=== PATIENT | female | born 1945 | race Caucasian/White ===

== ENCOUNTER 2021-06-02 20:32 | Emergency (ER) | payer OTHER ==
[2021-06-02] MEDS ORDERED: Acetaminophen 500 MG TAB ONE (22:31)
== END 2021-06-02 23:37 | disposition home or self-care (01) ==
LOC: CSHERS 20:32
DX: S00.03XA Contusion of scalp, initial encounter (principal); I11.0 Hypertensive heart disease with heart failure; I50.9 Heart failure, unspecified; M06.9 Rheumatoid arthritis, unspecified; E78.5 Hyperlipidemia, unspecified; E78.00 Pure hypercholesterolemia, unspecified; E03.9 Hypothyroidism, unspecified; F03.90 Unspecified dementia, unspecified severity, without behavioral disturbance, psychotic disturbance, mood disturbance, and anxiety; Z79.82 Long term (current) use of aspirin; Z79.899 Other long term (current) drug therapy; W01.198A Fall on same level from slipping, tripping and stumbling with subsequent striking against other object, initial encounter
CPT/HCPCS: 70450; 72125; 72128; 93005

== ENCOUNTER 2021-08-29 13:01 | Inpatient (IN) | payer MEDICARE, OTHER ==
[2021-08-29 13:48] LABS: #Basophils 0.1 10x3/uL (0.0-0.2); #Eosinphils 0.3 10x3/uL (0.0-0.5); #Monocytes 0.7 10x3/uL (0.0-1.1); #Neutrophils 4.1 10x3/uL (1.5-8.4); %Basophils 0.9 % (0.0-2.0); %Eosinophils 4.6 % (0.0-6.0); %Lymphocytes 22.5 % (18.0-47.0); %Monocytes 10.3 % (0.0-10.0); Hemoglobin 11.8 g/dL (12.0-15.5); Mean Corpuscular HGB CONC 31.5 g/dL (32.0-36.0); Mean Corpuscular Hemoglobin 32.6 pg (27.0-33.0); Mean Corpuscular Volume 103.6 fl (81.6-98.3); Mean Platelet Volume 11.1 fl (7.4-10.4); Platelet Count 195 10x3/uL (150-450); RBC Distribution Width 13.5 % (11.5-14.5); Red Blood Cell (RBC) Count 3.62 10x6/uL (3.90-5.03); White Blood Cell (WBC) Count 6.8 10x3/uL (3.5-10.5)
[2021-08-29 14:00] LABS: PTT 22.1 sec (22.0-33.0); Prothrombin Time 10.6 sec (9.5-12.1)
[2021-08-29 14:04] LABS: ALT (SGPT) 9 U/L (8-55); AST (SGOT) 12 U/L (5-34); Albumin 3.6 g/dL (3.4-4.8); Alkaline Phosphatase 109 U/L (40-110); Anion Gap 13 mmol/L (10-20); BUN (Urea Nitrogen) 25 mg/dL (9.8-20.1); Bilirubin, Total 0.2 mg/dL (0.2-1.2); Calc. Creatinine Clearance 0 mL/min (70-130); Calcium 8.5 mg/dL (7.8-10.44); Carbon Dioxide 29 mmol/L (23-31); Chloride 105 mmol/L (98-107); Glucose 138 mg/dL (83-110); Potassium 4.2 mmol/L (3.5-5.1); Protein, Total 6.6 g/dL (5.8-8.1); Sodium 143 mmol/L (136-145)
[2021-08-29 16:42] LABS: Bilirubin Neg (Negative); Blood, Urine Negative (Negative); Clarity Clear (Clear); Glucose, Urine (Dipstick) Normal (Negative); Ketone, Urine Negative (Negative); Leukocyte Negative (Negative); Nitrite Negative (Negative); Protein, Urine (Dipstick) Negative (Neg-Trace); Specific Gravity, Urine 1.015 (1.002-1.036); Urobilinogen Normal mg/dL (Less than 2)
[2021-08-29 19:25] LABS: Hemoglobin 11.9 g/dL (12.0-15.5)
[2021-08-29] MEDS ORDERED: Ondansetron ODT 4 MG TAB SL PRN (20:15)
[2021-08-29] MEDS ORDERED: Acetaminophen 325 MG TAB PO PRN (20:15)
[2021-08-29] MEDS ORDERED: Ondansetron PF 4 MG/2 ML Vial IVP PRN (20:15)
[2021-08-29 20:39] VITALS: BMI 34.9
[2021-08-29] MEDS: Sodium Chloride 0.9% 1,000 ML IV SCH (22:20)
[2021-08-29] MEDS: Primidone 50 MG TAB PO SCH (22:21)
[2021-08-30 01:29] LABS: Hemoglobin 11.4 g/dL (12.0-15.5)
[2021-08-30 05:16] LABS: Anion Gap 9 mmol/L (10-20); BUN (Urea Nitrogen) 18 mg/dL (9.8-20.1); Calc. Creatinine Clearance 91 mL/min (70-130); Calcium 8.6 mg/dL (7.8-10.44); Carbon Dioxide 31 mmol/L (23-31); Chloride 107 mmol/L (98-107); Glucose 91 mg/dL (83-110); Potassium 4.2 mmol/L (3.5-5.1); Sodium 143 mmol/L (136-145)
[2021-08-30 05:27] LABS: #Eosinphils 0.3 10x3/uL (0.0-0.5); #Monocytes 0.6 10x3/uL (0.0-1.1); #Neutrophils 3.9 10x3/uL (1.5-8.4); %Basophils 0.6 % (0.0-2.0); %Eosinophils 4.1 % (0.0-6.0); %Lymphocytes 23.7 % (18.0-47.0); %Monocytes 9.6 % (0.0-10.0); %Neutrophils 61.7 % (40.0-75.0); Hemoglobin 11.3 g/dL (12.0-15.5); Mean Corpuscular HGB CONC 31.3 g/dL (32.0-36.0); Mean Corpuscular Hemoglobin 32.6 pg (27.0-33.0); Mean Platelet Volume 10.9 fl (7.4-10.4); Platelet Count 186 10x3/uL (150-450); RBC Distribution Width 13.5 % (11.5-14.5); Red Blood Cell (RBC) Count 3.47 10x6/uL (3.90-5.03); White Blood Cell (WBC) Count 6.4 10x3/uL (3.5-10.5)
[2021-08-30] MEDS: Nitroglycerin 0.4 MG TAB (25 Tab Bottle) SL PRN ×2 (05:58→06:04)
[2021-08-30] MEDS ORDERED: Morphine 4 MG/ML VIAL SLOW IVP SCH (06:15)
[2021-08-30 06:52] LABS: Hemoglobin 11.7 g/dL (12.0-15.5)
[2021-08-30] MEDS: Sodium Chloride 0.9% 1,000 ML IV SCH (11:08)
[2021-08-30] MEDS: Primidone 50 MG TAB PO SCH ×2 (11:14→21:55)
[2021-08-30 13:04] LABS: Hemoglobin 11.4 g/dL (12.0-15.5)
[2021-08-30 15:25] LABS: SARS-CoV-2 PCR by NAA Not Detected (NotDetected)
[2021-08-30] MEDS ORDERED: Fleet Enema 133 ML BOT PR SCH (20:00)
[2021-08-31] MEDS ORDERED: Calcium Carbonate 500 MG TAB PO SCH (04:45)
[2021-08-31] MEDS ORDERED: Calcium Carbonate 500 MG ChewTAB PO SCH (04:45)
[2021-08-31 05:06] LABS: #Basophils 0.1 10x3/uL (0.0-0.2); #Eosinphils 0.2 10x3/uL (0.0-0.5); #Monocytes 0.8 10x3/uL (0.0-1.1); #Neutrophils 6.5 10x3/uL (1.5-8.4); %Basophils 0.7 % (0.0-2.0); %Eosinophils 2.5 % (0.0-6.0); %Lymphocytes 13.2 % (18.0-47.0); %Neutrophils 74.1 % (40.0-75.0); Hemoglobin 11.6 g/dL (12.0-15.5); Mean Corpuscular Hemoglobin 32.6 pg (27.0-33.0); Mean Corpuscular Volume 101.7 fl (81.6-98.3); Mean Platelet Volume 10.8 fl (7.4-10.4); Platelet Count 186 10x3/uL (150-450); RBC Distribution Width 13.1 % (11.5-14.5); Red Blood Cell (RBC) Count 3.56 10x6/uL (3.90-5.03); White Blood Cell (WBC) Count 8.8 10x3/uL (3.5-10.5)
[2021-08-31 05:19] LABS: Anion Gap 18 mmol/L (10-20); BUN (Urea Nitrogen) 14 mg/dL (9.8-20.1); Calc. Creatinine Clearance 89 mL/min (70-130); Calcium 8.4 mg/dL (7.8-10.44); Carbon Dioxide 23 mmol/L (23-31); Chloride 106 mmol/L (98-107); Glucose 92 mg/dL (83-110); Potassium 4.1 mmol/L (3.5-5.1); Sodium 143 mmol/L (136-145)
[2021-08-31] MEDS ORDERED: Levothyroxine Sodium 50 MCG TAB PO SCH (06:00)
[2021-08-31] MEDS: Primidone 50 MG TAB PO SCH (08:50)
[2021-08-31] MEDS ORDERED: Polyethylene Glycol 3350 17 GM Packet PO SCH (09:00)
[2021-08-31 16:03] VITALS: BP 144/62; TEMP 97.7
== END 2021-08-31 17:07 | DRG 394 ==
LOC: CSHERS 13:01 → CSHTELE 13:02
PROVIDERS: ADMIT Family Medicine; ATTEND Family Medicine
DX: K63.3 Ulcer of intestine (principal); K62.5 Hemorrhage of anus and rectum; Z20.822 Contact with and (suspected) exposure to COVID-19; E03.9 Hypothyroidism, unspecified; E78.00 Pure hypercholesterolemia, unspecified; F03.90 Unspecified dementia, unspecified severity, without behavioral disturbance, psychotic disturbance, mood disturbance, and anxiety; I25.10 Atherosclerotic heart disease of native coronary artery without angina pectoris; K80.80 Other cholelithiasis without obstruction; M06.9 Rheumatoid arthritis, unspecified; D64.9 Anemia, unspecified; I50.9 Heart failure, unspecified; K57.30 Diverticulosis of large intestine without perforation or abscess without bleeding; F41.9 Anxiety disorder, unspecified; Z88.2 Allergy status to sulfonamides; Z91.041 Radiographic dye allergy status; Z79.82 Long term (current) use of aspirin; Z79.02 Long term (current) use of antithrombotics/antiplatelets; Z79.899 Other long term (current) drug therapy; Z86.73 Personal history of transient ischemic attack (TIA), and cerebral infarction without residual deficits
CPT/HCPCS: 36415; 74176; 80048; 80053; 81003; 82274; 84484; 85025; 85610; 85730; 86850; 86900; 86901; 93005; 93010; J2270; J7050; U0003; U0005

== ENCOUNTER 2021-09-14 16:22 | Outpatient (CLI) | payer MEDICARE | END 2021-09-14 16:23 | disposition home or self-care (01) | LOC: CSHRAD 16:22 | PROVIDERS: ATTEND Psychiatry & Neurology Neurology | DX: R26.9 Unspecified abnormalities of gait and mobility (principal); M47.816 Spondylosis without myelopathy or radiculopathy, lumbar region; M16.11 Unilateral primary osteoarthritis, right hip | CPT/HCPCS: 72100 ==

== ENCOUNTER 2021-10-19 08:48 | Inpatient (IN) | payer MEDICARE, OTHER ==
[2021-10-19 09:33] LABS: #Basophils 0.1 10x3/uL (0.0-0.2); #Eosinphils 0.2 10x3/uL (0.0-0.5); #Monocytes 0.7 10x3/uL (0.0-1.1); #Neutrophils 6.4 10x3/uL (1.5-8.4); %Basophils 0.6 % (0.0-2.0); %Eosinophils 2.1 % (0.0-6.0); %Lymphocytes 15.2 % (18.0-47.0); %Monocytes 7.9 % (0.0-10.0); Hemoglobin 13.8 g/dL (12.0-15.5); Mean Corpuscular HGB CONC 32.5 g/dL (32.0-36.0); Mean Corpuscular Hemoglobin 31.6 pg (27.0-33.0); Mean Corpuscular Volume 97.3 fl (81.6-98.3); Platelet Count 245 10x3/uL (150-450); RBC Distribution Width 12.9 % (11.5-14.5); Red Blood Cell (RBC) Count 4.37 10x6/uL (3.90-5.03); White Blood Cell (WBC) Count 8.7 10x3/uL (3.5-10.5)
[2021-10-19 09:49] LABS: ALT (SGPT) 12 U/L (8-55); AST (SGOT) 17 U/L (5-34); Acetaminophen Less than 6.0 mcg/mL (10.0-30.0); Albumin 4.3 g/dL (3.4-4.8); Alcohol Less than 10 mg/dL (Less than 10); Alkaline Phosphatase 106 U/L (40-110); Anion Gap 15 mmol/L (10-20); BUN (Urea Nitrogen) 24 mg/dL (9.8-20.1); Bilirubin, Total 0.4 mg/dL (0.2-1.2); Calc. Creatinine Clearance 0 mL/min (70-130); Calcium 9.7 mg/dL (7.8-10.44); Carbon Dioxide 37 mmol/L (23-31); Chloride 91 mmol/L (98-107); Globulin 3.4 g/dL (2.4-3.5); Glucose 127 mg/dL (83-110); Protein, Total 7.7 g/dL (5.8-8.1); Salicylate Less than 8.0 mg/dL (15.0-30.0); Sodium 140 mmol/L (136-145)
[2021-10-19 09:54] LABS: Actual Bicarbonate (HCO3v) 35 mEq/L (22-28); Base Excess 8.6 mEq/L (-2.0 to +3.0); Chloride (VBG) 91 mmol/L (98-106); Hemoglobin (Hb) 14.2 g/dL (11.7-16.1); Potassium (VBG) 2.92 mmol/L (3.70-5.30); Puncture Site Other Site; Sodium 140.5 mmol/L (133-146); pH (venous) 7.41 (7.32-7.43)
[2021-10-19 11:33] LABS: SARS-CoV-2 NAA Rapid Test Not Detected (NotDetected)
[2021-10-19] MEDS ORDERED: Potassium Chloride 20 MEQ TAB ONE ×2 (11:49→15:34)
[2021-10-19] MEDS ORDERED: Acetaminophen 325 MG TAB ONE (12:20)
[2021-10-19 13:07] LABS: Troponin I Less than 0.010 ng/mL (< 0.028)
[2021-10-19] MEDS ORDERED: Famotidine/PF 20 mg/2ml Vial ONE (13:24)
[2021-10-19] MEDS ORDERED: methylPREDNISolone Sod Succ/PF 125 MG/2 ML VIAL ONE (13:24)
[2021-10-19] MEDS ORDERED: diphenhydrAMINE 50 MG/ML VIAL ONE (13:24)
[2021-10-19 14:32] LABS: Troponin I Less than 0.010 ng/mL (< 0.028)
[2021-10-19] MEDS ORDERED: Electrolyte Replacement Protocol 1 EACH FS SCH (15:00)
[2021-10-19] MEDS ORDERED: Potassium Chloride 20 MEQ TAB PO SCH (15:30)
[2021-10-19] MEDS ORDERED: Magnesium 2 GM/50 ML 2 GM in Premix Bag 1 BAG IVPB SCH (15:30)
[2021-10-19] MEDS ORDERED: Magnesium 2 GM/50 ML BAG (IN WATER) ONE (15:34)
[2021-10-19 16:53] LABS: Anion Gap 18 mmol/L (10-20); BUN (Urea Nitrogen) 23 mg/dL (9.8-20.1); Calc. Creatinine Clearance 0 mL/min (70-130); Calcium 9.8 mg/dL (7.8-10.44); Carbon Dioxide 34 mmol/L (23-31); Chloride 92 mmol/L (98-107); Glucose 121 mg/dL (83-110); Potassium 3.9 mmol/L (3.5-5.1); Sodium 140 mmol/L (136-145)
[2021-10-19] MEDS: cefTRIAXone\\ROCEPHIN 1 GM in Sodium Chloride 0.9% 100 ML IVPB SCH (19:40)
[2021-10-19 20:54] VITALS: BMI 27.4
[2021-10-19] MEDS: Furosemide 40 MG TAB PO SCH (21:14)
[2021-10-19] MEDS: Acetaminophen 325 MG TAB PO PRN (21:15)
[2021-10-19] MEDS: Donepezil HCl 5 MG TAB PO SCH (21:15)
[2021-10-19] MEDS: Atorvastatin Calcium 10 MG TAB PO SCH (21:15)
[2021-10-20 05:29] LABS: #Monocytes 0.6 10x3/uL (0.0-1.1); #Neutrophils 8.3 10x3/uL (1.5-8.4); %Basophils 0.3 % (0.0-2.0); %Lymphocytes 11.2 % (18.0-47.0); %Monocytes 6.2 % (0.0-10.0); %Neutrophils 81.8 % (40.0-75.0); Hemoglobin 13.9 g/dL (12.0-15.5); Mean Corpuscular HGB CONC 32.9 g/dL (32.0-36.0); Mean Corpuscular Hemoglobin 31.6 pg (27.0-33.0); Mean Corpuscular Volume 95.9 fl (81.6-98.3); Mean Platelet Volume 11.4 fl (7.4-10.4); Platelet Count 272 10x3/uL (150-450); White Blood Cell (WBC) Count 10.1 10x3/uL (3.5-10.5)
[2021-10-20 05:35] LABS: Anion Gap 16 mmol/L (10-20); BUN (Urea Nitrogen) 31 mg/dL (9.8-20.1); Calc. Creatinine Clearance 39 mL/min (70-130); Calcium 9.7 mg/dL (7.8-10.44); Carbon Dioxide 34 mmol/L (23-31); Chloride 96 mmol/L (98-107); Glucose 133 mg/dL (83-110); Magnesium 2.6 mg/dL (1.6-2.6); Potassium 3.8 mmol/L (3.5-5.1); Sodium 142 mmol/L (136-145)
[2021-10-20] MEDS: Levothyroxine Sodium 100 MCG TAB PO SCH (07:40)
[2021-10-20] MEDS: Citalopram 20 MG TAB PO SCH (09:50)
[2021-10-20] MEDS: Aspirin Chewable 81 MG TAB PO SCH (09:50)
[2021-10-20] MEDS: Bupropion 150 MG XL TAB PO SCH (09:50)
[2021-10-20] MEDS: Potassium Chloride 20 MEQ TAB PO SCH (09:50)
[2021-10-20] MEDS: Folic Acid 1 MG TAB PO SCH (09:50)
[2021-10-20] MEDS: Furosemide 40 MG TAB PO SCH ×2 (09:51→19:13)
[2021-10-20] MEDS: Docusate 100 MG CAP PO SCH (09:52)
[2021-10-20] MEDS: Polyethylene Glycol 3350 17 GM Packet PO SCH (09:52)
[2021-10-20] MEDS ORDERED: Gabapentin 300 MG CAP PO SCH ×2 (10:45→21:00)
[2021-10-20] MEDS: cefTRIAXone\\ROCEPHIN 1 GM in Sodium Chloride 0.9% 100 ML IVPB SCH (16:18)
[2021-10-20] MEDS: Atorvastatin Calcium 10 MG TAB PO SCH (21:29)
[2021-10-20] MEDS: Donepezil HCl 5 MG TAB PO SCH (21:29)
[2021-10-20] MEDS: Gabapentin 300 MG CAP PO SCH (21:29)
[2021-10-21 05:22] LABS: Anion Gap 13 mmol/L (10-20); Calc. Creatinine Clearance 49 mL/min (70-130); Carbon Dioxide 34 mmol/L (23-31); Chloride 98 mmol/L (98-107); Glucose 118 mg/dL (83-110); Potassium 3.3 mmol/L (3.5-5.1); Sodium 142 mmol/L (136-145)
[2021-10-21 05:35] LABS: #Basophils 0.1 10x3/uL (0.0-0.2); #Eosinphils 0.1 10x3/uL (0.0-0.5); #Neutrophils 5.4 10x3/uL (1.5-8.4); %Basophils 0.7 % (0.0-2.0); %Eosinophils 1.3 % (0.0-6.0); %Lymphocytes 25.6 % (18.0-47.0); %Monocytes 11.1 % (0.0-10.0); %Neutrophils 60.9 % (40.0-75.0); Hemoglobin 13.1 g/dL (12.0-15.5); Mean Corpuscular HGB CONC 32.3 g/dL (32.0-36.0); Mean Corpuscular Hemoglobin 31.5 pg (27.0-33.0); Mean Corpuscular Volume 97.4 fl (81.6-98.3); Mean Platelet Volume 11.2 fl (7.4-10.4); Platelet Count 241 10x3/uL (150-450); RBC Distribution Width 13.5 % (11.5-14.5); Red Blood Cell (RBC) Count 4.16 10x6/uL (3.90-5.03); White Blood Cell (WBC) Count 8.9 10x3/uL (3.5-10.5)
[2021-10-21 05:38] LABS: BUN (Urea Nitrogen) 36 mg/dL (9.8-20.1)
[2021-10-21] MEDS: Levothyroxine Sodium 100 MCG TAB PO SCH (06:00)
[2021-10-21] MEDS ORDERED: Potassium Chloride 20 MEQ TAB PO SCH (08:00)
[2021-10-21] MEDS: Aspirin Chewable 81 MG TAB PO SCH (10:21)
[2021-10-21] MEDS: Clopidogrel Bisulfate 75 MG TAB PO SCH (10:21)
[2021-10-21] MEDS: Citalopram 20 MG TAB PO SCH (10:21)
[2021-10-21] MEDS: Bupropion 150 MG XL TAB PO SCH (10:22)
[2021-10-21] MEDS: Gabapentin 300 MG CAP PO SCH ×2 (10:22→22:24)
[2021-10-21] MEDS: Furosemide 40 MG TAB PO SCH ×2 (10:22→17:20)
[2021-10-21] MEDS: Potassium Chloride 20 MEQ TAB PO SCH ×2 (10:22→17:20)
[2021-10-21] MEDS: Docusate 100 MG CAP PO SCH (10:23)
[2021-10-21] MEDS: Folic Acid 1 MG TAB PO SCH (10:23)
[2021-10-21 14:31] LABS: Potassium 3.7 mmol/L (3.5-5.1)
[2021-10-21] MEDS: Polyethylene Glycol 3350 17 GM Packet PO SCH (16:10)
[2021-10-21] MEDS: cefTRIAXone\\ROCEPHIN 1 GM in Sodium Chloride 0.9% 100 ML IVPB SCH (17:20)
[2021-10-21] MEDS: Donepezil HCl 5 MG TAB PO SCH (22:26)
[2021-10-21] MEDS: Atorvastatin Calcium 10 MG TAB PO SCH (22:26)
[2021-10-21] MEDS: Acetaminophen 325 MG TAB PO PRN (22:37)
[2021-10-22 04:25] LABS: #Eosinphils 0.2 10x3/uL (0.0-0.5); #Neutrophils 6.2 10x3/uL (1.5-8.4); %Basophils 0.4 % (0.0-2.0); %Eosinophils 2.5 % (0.0-6.0); %Lymphocytes 21.5 % (18.0-47.0); %Monocytes 10.2 % (0.0-10.0); %Neutrophils 64.9 % (40.0-75.0); Hemoglobin 13.1 g/dL (12.0-15.5); Mean Corpuscular Hemoglobin 31.6 pg (27.0-33.0); Mean Platelet Volume 11.2 fl (7.4-10.4); Platelet Count 237 10x3/uL (150-450); RBC Distribution Width 13.4 % (11.5-14.5); Red Blood Cell (RBC) Count 4.14 10x6/uL (3.90-5.03); White Blood Cell (WBC) Count 9.5 10x3/uL (3.5-10.5)
[2021-10-22 04:44] LABS: Anion Gap 16 mmol/L (10-20); BUN (Urea Nitrogen) 32 mg/dL (9.8-20.1); Calc. Creatinine Clearance 53 mL/min (70-130); Calcium 8.9 mg/dL (7.8-10.44); Carbon Dioxide 31 mmol/L (23-31); Chloride 100 mmol/L (98-107); Glucose 117 mg/dL (83-110); Magnesium 2.1 mg/dL (1.6-2.6); Phosphorus 3.8 mg/dL (2.3-4.7); Potassium 3.6 mmol/L (3.5-5.1); Sodium 143 mmol/L (136-145)
[2021-10-22] MEDS: Levothyroxine Sodium 100 MCG TAB PO SCH (06:43)
[2021-10-22] MEDS: Aspirin Chewable 81 MG TAB PO SCH (10:01)
[2021-10-22] MEDS: Clopidogrel Bisulfate 75 MG TAB PO SCH (10:01)
[2021-10-22] MEDS: Potassium Chloride 20 MEQ TAB PO SCH (10:01)
[2021-10-22] MEDS: Gabapentin 300 MG CAP PO SCH (10:01)
[2021-10-22] MEDS: Bupropion 150 MG XL TAB PO SCH (10:02)
[2021-10-22] MEDS: Citalopram 20 MG TAB PO SCH (10:02)
[2021-10-22] MEDS: Docusate 100 MG CAP PO SCH (10:02)
[2021-10-22] MEDS: Polyethylene Glycol 3350 17 GM Packet PO SCH (10:02)
[2021-10-22] MEDS: Furosemide 40 MG TAB PO SCH (10:02)
[2021-10-22] MEDS: Folic Acid 1 MG TAB PO SCH (10:02)
[2021-10-22 19:45] VITALS: BP 120/59; TEMP 98.1
== END 2021-10-22 14:30 | disposition home or self-care (01) | DRG 206 ==
LOC: CSHERS 08:48 → CSHERHOLD 13:28 → CSHTELE 16:42
PROVIDERS: ADMIT Family Medicine; ATTEND Physician Assistant Medical
DX: R09.02 Hypoxemia (principal); N17.9 Acute kidney failure, unspecified; E87.3 Alkalosis; N39.0 Urinary tract infection, site not specified; J98.11 Atelectasis; I50.30 Unspecified diastolic (congestive) heart failure; E03.9 Hypothyroidism, unspecified; E78.5 Hyperlipidemia, unspecified; I11.0 Hypertensive heart disease with heart failure; M06.9 Rheumatoid arthritis, unspecified; F03.90 Unspecified dementia, unspecified severity, without behavioral disturbance, psychotic disturbance, mood disturbance, and anxiety; F41.9 Anxiety disorder, unspecified; E87.6 Hypokalemia; Z20.822 Contact with and (suspected) exposure to COVID-19; I44.7 Left bundle-branch block, unspecified; I25.10 Atherosclerotic heart disease of native coronary artery without angina pectoris; Z96.653 Presence of artificial knee joint, bilateral; S09.90XA Unspecified injury of head, initial encounter; K80.20 Calculus of gallbladder without cholecystitis without obstruction; W19.XXXA Unspecified fall, initial encounter; I27.20 Pulmonary hypertension, unspecified; Z88.2 Allergy status to sulfonamides; Z88.8 Allergy status to other drugs, medicaments and biological substances; Z79.82 Long term (current) use of aspirin; Z79.899 Other long term (current) drug therapy; Z90.710 Acquired absence of both cervix and uterus; Y92.003 Bedroom of unspecified non-institutional (private) residence as the place of occurrence of the external cause
CPT/HCPCS: 36415; 70450; 71045; 71275; 72125; 72170; 80048; 80053; 80307; 82805; 83735; 83880; 84100; 84443; 84484; 85025; 93005; 93306; 94760; 96374; 96375; J0696; J1200; J2930; J3475; J3490; S0028; U0002

== ENCOUNTER 2021-11-10 09:05 | Inpatient (IN) | payer OTHER, MEDICARE ==
[2021-11-10 09:49] LABS: #Eosinphils 0.2 10x3/uL (0.0-0.5); #Monocytes 0.9 10x3/uL (0.0-1.1); #Neutrophils 6.1 10x3/uL (1.5-8.4); %Basophils 0.5 % (0.0-2.0); %Eosinophils 1.8 % (0.0-6.0); %Lymphocytes 16.2 % (18.0-47.0); %Monocytes 10.4 % (0.0-10.0); %Neutrophils 70.7 % (40.0-75.0); Hemoglobin 13.6 g/dL (12.0-15.5); Mean Corpuscular HGB CONC 32.6 g/dL (32.0-36.0); Mean Corpuscular Hemoglobin 31.7 pg (27.0-33.0); Mean Corpuscular Volume 97.2 fl (81.6-98.3); Mean Platelet Volume 11.1 fl (7.4-10.4); Platelet Count 242 10x3/uL (150-450); RBC Distribution Width 13.8 % (11.5-14.5); Red Blood Cell (RBC) Count 4.29 10x6/uL (3.90-5.03); White Blood Cell (WBC) Count 8.6 10x3/uL (3.5-10.5)
[2021-11-10 10:01] LABS: PTT 25.4 sec (22.0-33.0); Prothrombin Time 10.8 sec (9.5-12.1)
[2021-11-10 10:07] LABS: ALT (SGPT) 15 U/L (8-55); AST (SGOT) 17 U/L (5-34); Albumin 4.3 g/dL (3.4-4.8); Alkaline Phosphatase 113 U/L (40-110); BUN (Urea Nitrogen) 27 mg/dL (9.8-20.1); Bilirubin, Total 0.4 mg/dL (0.2-1.2); Calc. Creatinine Clearance 0 mL/min (70-130); Calcium 9.3 mg/dL (7.8-10.44); Glucose 114 mg/dL (83-110); Protein, Total 7.3 g/dL (5.8-8.1)
[2021-11-10 10:09] LABS: Chloride 90 mmol/L (98-107); Potassium 2.9 mmol/L (3.5-5.1); Sodium 142 mmol/L (136-145)
[2021-11-10 10:14] LABS: Anion Gap 17 mmol/L (10-20); Carbon Dioxide 39 mmol/L (23-31)
[2021-11-10 10:42] LABS: SARS-CoV-2 NAA Rapid Test Not Detected (NotDetected)
[2021-11-10] MEDS ORDERED: Potassium Chloride 20 MEQ TAB ONE (11:01)
[2021-11-10] MEDS ORDERED: Potassium Chloride 20 MEQ TAB PO SCH (11:15)
[2021-11-10 12:00] LABS: Actual Bicarbonate (HCO3v) 43 mEq/L (22-28); Base Excess 15.1 mEq/L (-2.0 to +3.0); Calcium, Ionized (venous) 1.09 mmol/L (1.16-1.32); Chloride (VBG) 90 mmol/L (98-106); Hemoglobin (Hb) 13.5 g/dL (11.7-16.1); Potassium (VBG) 2.91 mmol/L (3.70-5.30); Puncture Site Other Site; pH (venous) 7.44 (7.32-7.43)
[2021-11-10] MEDS ORDERED: Acetaminophen 650 MG Suppository PR PRN (12:08)
[2021-11-10] MEDS ORDERED: Ondansetron ODT 4 MG TAB PO PRN (12:08)
[2021-11-10] MEDS ORDERED: Ondansetron PF 4 MG/2 ML Vial IVP PRN (12:08)
[2021-11-10] MEDS ORDERED: hydrALAZINE 20 MG/ML VIAL SLOW IVP PRN (12:08)
[2021-11-10] MEDS ORDERED: NS 0.9% w/ 20 MEQ KCL 1,000 ML ONE (12:39)
[2021-11-10] MEDS ORDERED: Potassium Chloride 10 MEQ in Premix Bag 1 BAG IVPB SCH (13:00)
[2021-11-10 13:39] LABS: BUN (Urea Nitrogen) 26 mg/dL (9.8-20.1); Calc. Creatinine Clearance 0 mL/min (70-130); Calcium 9.6 mg/dL (7.8-10.44); Glucose 100 mg/dL (83-110)
[2021-11-10 14:09] LABS: Carbon Dioxide 39 mmol/L (23-31)
[2021-11-10 14:13] LABS: Chloride 91 mmol/L (98-107); Potassium 3.4 mmol/L (3.5-5.1); Sodium 143 mmol/L (136-145)
[2021-11-10 14:19] LABS: Anion Gap 16 mmol/L (10-20)
[2021-11-10] MEDS ORDERED: Aspirin 81 mg Enteric Coated Tablet PO SCH (16:15)
[2021-11-10] MEDS: NS 0.9% w/ 40 MEQ KCL 1,000 ML IV SCH (18:14)
[2021-11-10 19:22] VITALS: BMI 35.5
[2021-11-10] MEDS ORDERED: Atorvastatin Calcium 40 MG TAB PO SCH (21:00)
[2021-11-11 04:01] LABS: Anion Gap 14 mmol/L (10-20); BUN (Urea Nitrogen) 23 mg/dL (9.8-20.1); Calc. Creatinine Clearance 82 mL/min (70-130); Calcium 9.3 mg/dL (7.8-10.44); Carbon Dioxide 36 mmol/L (23-31); Cardiac Risk 3.7 (Less than 4.5); Chloride 96 mmol/L (98-107); Cholesterol 185 mg/dl (< 200 Desired); Glucose 109 mg/dL (83-110); HDL Cholesterol 50 mg/dL (>60 Neg Risk); LDL Cholesterol, Calculated 111 mg/dL; Sodium 143 mmol/L (136-145); Triglycerides 120 mg/dL (Less than 150)
[2021-11-11 04:07] LABS: #Basophils 0.1 10x3/uL (0.0-0.2); #Eosinphils 0.2 10x3/uL (0.0-0.5); #Monocytes 1.1 10x3/uL (0.0-1.1); #Neutrophils 4.6 10x3/uL (1.5-8.4); %Basophils 0.7 % (0.0-2.0); %Eosinophils 2.8 % (0.0-6.0); %Lymphocytes 17.6 % (18.0-47.0); %Monocytes 14.8 % (0.0-10.0); Hemoglobin 12.9 g/dL (12.0-15.5); Mean Corpuscular HGB CONC 32.4 g/dL (32.0-36.0); Mean Corpuscular Hemoglobin 31.7 pg (27.0-33.0); Mean Corpuscular Volume 97.8 fl (81.6-98.3); Mean Platelet Volume 10.9 fl (7.4-10.4); Platelet Count 216 10x3/uL (150-450); RBC Distribution Width 13.9 % (11.5-14.5); Red Blood Cell (RBC) Count 4.07 10x6/uL (3.90-5.03); White Blood Cell (WBC) Count 7.2 10x3/uL (3.5-10.5)
[2021-11-11] MEDS: NS 0.9% w/ 40 MEQ KCL 1,000 ML IV SCH ×3 (07:21→22:22)
[2021-11-11] MEDS ORDERED: Aspirin 81 mg Enteric Coated Tablet PO SCH (09:00)
[2021-11-11] MEDS ORDERED: Potassium Chloride 20 MEQ TAB PO SCH ×2 (09:15→11:00)
[2021-11-11 10:01] LABS: Anion Gap 15 mmol/L (10-20); BUN (Urea Nitrogen) 21 mg/dL (9.8-20.1); Calc. Creatinine Clearance 80 mL/min (70-130); Calcium 9.2 mg/dL (7.8-10.44); Carbon Dioxide 35 mmol/L (23-31); Chloride 98 mmol/L (98-107); Glucose 127 mg/dL (83-110); Potassium 3.4 mmol/L (3.5-5.1); Sodium 145 mmol/L (136-145)
[2021-11-11 10:25] LABS: Magnesium 2.2 mg/dL (1.6-2.6)
[2021-11-11] MEDS: Atorvastatin Calcium 10 MG TAB PO SCH (20:19)
[2021-11-11] MEDS: Gabapentin 300 MG CAP PO SCH (20:19)
[2021-11-11] MEDS: Acetaminophen 325 MG TAB PO PRN (21:50)
[2021-11-12 04:03] LABS: #Eosinphils 0.2 10x3/uL (0.0-0.5); #Monocytes 1.2 10x3/uL (0.0-1.1); #Neutrophils 4.9 10x3/uL (1.5-8.4); %Basophils 0.2 % (0.0-2.0); %Eosinophils 2.2 % (0.0-6.0); %Lymphocytes 21.9 % (18.0-47.0); %Monocytes 14.7 % (0.0-10.0); %Neutrophils 60.6 % (40.0-75.0); Mean Corpuscular HGB CONC 31.5 g/dL (32.0-36.0); Mean Corpuscular Hemoglobin 31.6 pg (27.0-33.0); Mean Corpuscular Volume 100.5 fl (81.6-98.3); Mean Platelet Volume 11.2 fl (7.4-10.4); Platelet Count 229 10x3/uL (150-450); RBC Distribution Width 14.2 % (11.5-14.5); Red Blood Cell (RBC) Count 4.11 10x6/uL (3.90-5.03)
[2021-11-12] MEDS: Levothyroxine Sodium 100 MCG TAB PO SCH (05:22)
[2021-11-12 05:23] LABS: Anion Gap 13 mmol/L (10-20); BUN (Urea Nitrogen) 17 mg/dL (9.8-20.1); Calc. Creatinine Clearance 96 mL/min (70-130); Calcium 8.6 mg/dL (7.8-10.44); Carbon Dioxide 29 mmol/L (23-31); Chloride 109 mmol/L (98-107); Glucose 107 mg/dL (83-110); Potassium 4.5 mmol/L (3.5-5.1); Sodium 146 mmol/L (136-145)
[2021-11-12] MEDS: NS 0.9% w/ 40 MEQ KCL 1,000 ML IV SCH (07:15)
[2021-11-12] MEDS: Bupropion 150 MG XL TAB PO SCH (08:40)
[2021-11-12] MEDS: Clopidogrel Bisulfate 75 MG TAB PO SCH (08:40)
[2021-11-12] MEDS: Citalopram 20 MG TAB PO SCH (08:40)
[2021-11-12] MEDS: Gabapentin 300 MG CAP PO SCH ×2 (08:40→21:49)
[2021-11-12] MEDS: Aspirin Chewable 81 MG TAB PO SCH (08:40)
[2021-11-12] MEDS: Docusate 100 MG CAP PO SCH (08:40)
[2021-11-12] MEDS: Folic Acid 1 MG TAB PO SCH (08:40)
[2021-11-12] MEDS ORDERED: Donepezil HCl 5 MG TAB PO SCH (21:00)
[2021-11-12] MEDS ORDERED: Melatonin 3 MG TAB PO SCH (21:00)
[2021-11-12] MEDS: Atorvastatin Calcium 10 MG TAB PO SCH (21:49)
[2021-11-13] MEDS: Acetaminophen 325 MG TAB PO PRN (02:06)
[2021-11-13 04:51] LABS: #Eosinphils 0.5 10x3/uL (0.0-0.5); #Monocytes 1.1 10x3/uL (0.0-1.1); #Neutrophils 7.4 10x3/uL (1.5-8.4); %Basophils 0.3 % (0.0-2.0); %Eosinophils 4.5 % (0.0-6.0); %Lymphocytes 13.6 % (18.0-47.0); %Monocytes 10.3 % (0.0-10.0); %Neutrophils 70.9 % (40.0-75.0); Hemoglobin 11.2 g/dL (12.0-15.5); Mean Corpuscular HGB CONC 31.5 g/dL (32.0-36.0); Mean Corpuscular Hemoglobin 32.1 pg (27.0-33.0); Mean Corpuscular Volume 101.7 fl (81.6-98.3); Platelet Count 209 10x3/uL (150-450); RBC Distribution Width 13.8 % (11.5-14.5); Red Blood Cell (RBC) Count 3.49 10x6/uL (3.90-5.03); White Blood Cell (WBC) Count 10.5 10x3/uL (3.5-10.5)
[2021-11-13 04:59] LABS: Anion Gap 13 mmol/L (10-20); BUN (Urea Nitrogen) 16 mg/dL (9.8-20.1); Calc. Creatinine Clearance 105 mL/min (70-130); Calcium 8.8 mg/dL (7.8-10.44); Carbon Dioxide 27 mmol/L (23-31); Chloride 107 mmol/L (98-107); Glucose 116 mg/dL (83-110); Potassium 4.5 mmol/L (3.5-5.1); Sodium 142 mmol/L (136-145)
[2021-11-13] MEDS: Levothyroxine Sodium 100 MCG TAB PO SCH (06:14)
[2021-11-13] MEDS ORDERED: Loperamide HCl 1 MG/7.5 ML UDCUP PO PRN (10:04)
[2021-11-13] MEDS ORDERED: Cholestyramine/Aspartame 4 gm Packet PO SCH ×2 (10:15→22:00)
[2021-11-13] MEDS: Clopidogrel Bisulfate 75 MG TAB PO SCH (11:27)
[2021-11-13] MEDS: Docusate 100 MG CAP PO SCH (11:27)
[2021-11-13] MEDS: Folic Acid 1 MG TAB PO SCH (11:28)
[2021-11-13] MEDS: Citalopram 20 MG TAB PO SCH (11:28)
[2021-11-13] MEDS: Bupropion 150 MG XL TAB PO SCH (11:28)
[2021-11-13] MEDS: Aspirin Chewable 81 MG TAB PO SCH (11:28)
[2021-11-13] MEDS: Gabapentin 300 MG CAP PO SCH (11:38)
[2021-11-13 12:38] VITALS: BP 119/57; TEMP 98.2
== END 2021-11-13 17:45 | DRG 69 ==
LOC: CSHERS 09:05 → INTOOBSV 15:42 → CSHERHOLD 15:42 → OBSVTOIN 15:42 → CSHTELE 18:35
PROVIDERS: ADMIT Family Medicine; ATTEND Family Medicine
DX: G45.9 Transient cerebral ischemic attack, unspecified (principal); J96.01 Acute respiratory failure with hypoxia; E87.3 Alkalosis; E87.2 Acidosis; N17.9 Acute kidney failure, unspecified; I13.0 Hypertensive heart and chronic kidney disease with heart failure and stage 1 through stage 4 chronic kidney disease, or unspecified chronic kidney disease; I50.32 Chronic diastolic (congestive) heart failure; E03.9 Hypothyroidism, unspecified; E78.5 Hyperlipidemia, unspecified; I25.10 Atherosclerotic heart disease of native coronary artery without angina pectoris; M06.9 Rheumatoid arthritis, unspecified; F41.9 Anxiety disorder, unspecified; G30.9 Alzheimer's disease, unspecified; F02.80 Dementia in other diseases classified elsewhere, unspecified severity, without behavioral disturbance, psychotic disturbance, mood disturbance, and anxiety; I44.7 Left bundle-branch block, unspecified; Z96.653 Presence of artificial knee joint, bilateral; E87.6 Hypokalemia; Z20.822 Contact with and (suspected) exposure to COVID-19; M19.90 Unspecified osteoarthritis, unspecified site; E78.00 Pure hypercholesterolemia, unspecified; W19.XXXA Unspecified fall, initial encounter; N18.2 Chronic kidney disease, stage 2 (mild); D64.9 Anemia, unspecified; Z90.710 Acquired absence of both cervix and uterus; Y92.89 Other specified places as the place of occurrence of the external cause; Z88.2 Allergy status to sulfonamides; Z88.8 Allergy status to other drugs, medicaments and biological substances; Z79.82 Long term (current) use of aspirin; Z79.899 Other long term (current) drug therapy; Z91.81 History of falling
CPT/HCPCS: 0240U; 36415; 70450; 70551; 71045; 80048; 80053; 80061; 82088; 82533; 82805; 83735; 83880; 84244; 84443; 84484; 85025; 85610; 85730; 93005; 93306; 94760; G0378; J3480

== ENCOUNTER 2022-03-05 07:57 | Emergency (ER) | payer MEDICARE ==
[2022-03-05 08:36] LABS: #Basophils 0.1 10x3/uL (0.0-0.2); #Eosinphils 0.2 10x3/uL (0.0-0.5); #Monocytes 0.7 10x3/uL (0.0-1.1); %Basophils 0.6 % (0.0-2.0); %Eosinophils 2.6 % (0.0-6.0); %Lymphocytes 14.4 % (18.0-47.0); %Monocytes 7.9 % (0.0-10.0); %Neutrophils 73.9 % (40.0-75.0); Hemoglobin 11.9 g/dL (12.0-15.5); Mean Corpuscular HGB CONC 31.8 g/dL (32.0-36.0); Mean Corpuscular Hemoglobin 30.1 pg (27.0-33.0); Mean Corpuscular Volume 94.4 fl (81.6-98.3); Mean Platelet Volume 10.8 fl (7.4-10.4); Platelet Count 206 10x3/uL (150-450); Red Blood Cell (RBC) Count 3.96 10x6/uL (3.90-5.03); White Blood Cell (WBC) Count 8.2 10x3/uL (3.5-10.5)
[2022-03-05] MEDS ORDERED: Acetaminophen 500 MG TAB ONE (08:41)
[2022-03-05 09:08] LABS: ALT (SGPT) 10 U/L (8-55); AST (SGOT) 16 U/L (5-34); Acetaminophen Less than 10.0 mcg/mL (10.0-30.0); Albumin 3.5 g/dL (3.4-4.8); Alcohol Less than 10 mg/dL (Less than 10); Alkaline Phosphatase 85 U/L (40-110); Anion Gap 15 mmol/L (10-20); BUN (Urea Nitrogen) 13 mg/dL (9.8-20.1); Bilirubin, Total 0.3 mg/dL (0.2-1.2); CK (CPK) 31 U/L (29-168); Calc. Creatinine Clearance 0 mL/min (70-130); Calcium 8.6 mg/dL (7.8-10.44); Carbon Dioxide 26 mmol/L (23-31); Chloride 104 mmol/L (98-107); Globulin 2.9 g/dL (2.4-3.5); Glucose 138 mg/dL (83-110); Potassium 4.7 mmol/L (3.5-5.1); Protein, Total 6.4 g/dL (5.8-8.1); Salicylate Less than 8.0 mg/dL (15.0-30.0); Sodium 140 mmol/L (136-145)
[2022-03-05 11:02] LABS: Bilirubin Neg (Negative); Blood, Urine Negative (Negative); Clarity Clear (Clear); Glucose, Urine (Dipstick) Normal (Negative); Ketone, Urine Negative (Negative); Leukocyte 25 (Negative); Nitrite Negative (Negative); Protein, Urine (Dipstick) 30 mg/dl (Neg-Trace); Urobilinogen Normal mg/dL (Less than 2)
[2022-03-05 11:09] LABS: Amphetamine Not Detected (NotDetected); Barbiturates Screen Detected (NotDetected); Benzodiazepine Screen Not Detected (NotDetected); Cocaine Metabolite Screen Not Detected (NotDetected); Methadone Not Detected (NotDetected); Methamphetamine Not Detected (NotDetected); Opiate Screen Not Detected (NotDetected); Oxycodone Screen Not Detected (NotDetected); Phencyclidine (PCP) Not Detected (NotDetected); THC/Cannabinoid Screen Not Detected (NotDetected); Tricyclic Screen Not Detected (NotDetected)
[2022-03-05 11:25] LABS: RBC/HPF 0-3 HPF (0-3); Squamous Epithelial 0-3 HPF (0-3); WBC/HPF 0-3 HPF (0-3)
[2022-03-05 11:26] LABS: Bacteria/HPF 2+ HPF (None Seen)
== END 2022-03-05 13:21 | disposition home or self-care (01) ==
LOC: CSHERS 07:57
DX: S80.02XA Contusion of left knee, initial encounter (principal); S80.01XA Contusion of right knee, initial encounter; E03.9 Hypothyroidism, unspecified; E78.5 Hyperlipidemia, unspecified; I11.0 Hypertensive heart disease with heart failure; I50.9 Heart failure, unspecified; W19.XXXA Unspecified fall, initial encounter
CPT/HCPCS: 70450; 71045; 72170; 80053; 80306; 80307; 81003; 81015; 82550; 83735; 83880; 84443; 85025; 93005

== ENCOUNTER 2022-03-07 11:52 | Emergency (ER) | payer MEDICARE ==
[2022-03-07] MEDS ORDERED: Acetaminophen/Codeine 30-300mg Tablet ONE (12:32)
[2022-03-07] MEDS ORDERED: Bacitracin 1 PK ONE (13:46)
== END 2022-03-07 14:00 | disposition home or self-care (01) ==
LOC: CSHERS 11:52
DX: T22.252A Burn of second degree of left shoulder, initial encounter (principal); T31.0 Burns involving less than 10% of body surface; I11.0 Hypertensive heart disease with heart failure; I50.9 Heart failure, unspecified; I25.10 Atherosclerotic heart disease of native coronary artery without angina pectoris; E03.9 Hypothyroidism, unspecified; E78.5 Hyperlipidemia, unspecified; M06.9 Rheumatoid arthritis, unspecified; K21.9 Gastro-esophageal reflux disease without esophagitis; X19.XXXA Contact with other heat and hot substances, initial encounter
CPT/HCPCS: 16000

== ENCOUNTER 2022-03-13 19:10 | Inpatient (IN) | payer MEDICARE ==
[2022-03-13] MEDS ORDERED: Morphine 4 MG/ML VIAL ONE (20:00)
[2022-03-13 20:02] LABS: #Basophils 0.1 10x3/uL (0.0-0.2); #Eosinphils 0.3 10x3/uL (0.0-0.5); #Monocytes 0.9 10x3/uL (0.0-1.1); #Neutrophils 10.9 10x3/uL (1.5-8.4); %Basophils 0.4 % (0.0-2.0); %Eosinophils 2.4 % (0.0-6.0); %Lymphocytes 11.7 % (18.0-47.0); %Monocytes 6.7 % (0.0-10.0); %Neutrophils 78.4 % (40.0-75.0); Mean Corpuscular HGB CONC 31.2 g/dL (32.0-36.0); Mean Corpuscular Hemoglobin 29.8 pg (27.0-33.0); Mean Corpuscular Volume 95.5 fl (81.6-98.3); Platelet Count 259 10x3/uL (150-450); RBC Distribution Width 14.4 % (11.5-14.5); Red Blood Cell (RBC) Count 4.03 10x6/uL (3.90-5.03)
[2022-03-13 20:15] LABS: ALT (SGPT) 9 U/L (8-55); AST (SGOT) 15 U/L (5-34); Albumin 3.9 g/dL (3.4-4.8); Alkaline Phosphatase 92 U/L (40-110); Anion Gap 15 mmol/L (10-20); BUN (Urea Nitrogen) 17 mg/dL (9.8-20.1); Bilirubin, Total 0.2 mg/dL (0.2-1.2); Calc. Creatinine Clearance 0 mL/min (70-130); Calcium 8.7 mg/dL (7.8-10.44); Carbon Dioxide 31 mmol/L (23-31); Chloride 99 mmol/L (98-107); Globulin 3.1 g/dL (2.4-3.5); Glucose 132 mg/dL (83-110); Lipase 21 U/L (8-78); Potassium 3.9 mmol/L (3.5-5.1); Sodium 141 mmol/L (136-145)
[2022-03-13 20:34] LABS: CKMB 1.7 ng/mL (0-6.6)
[2022-03-13] MEDS ORDERED: methylPREDNISolone Sod Succ/PF 125 MG/2 ML VIAL ONE (22:23)
[2022-03-13] MEDS ORDERED: diphenhydrAMINE 50 MG/ML VIAL ONE (22:23)
[2022-03-13] MEDS ORDERED: Famotidine/PF 20 mg/2ml Vial ONE (22:24)
[2022-03-14] MEDS ORDERED: Bacitracin 1 PK ONE (04:03)
[2022-03-14 04:48] LABS: Hemoglobin 12.2 g/dL (12.0-15.5); Mean Corpuscular HGB CONC 32.3 g/dL (32.0-36.0); Mean Corpuscular Volume 93.1 fl (81.6-98.3); Mean Platelet Volume 10.7 fl (7.4-10.4); Platelet Count 238 10x3/uL (150-450); RBC Distribution Width 14.9 % (11.5-14.5); Red Blood Cell (RBC) Count 4.06 10x6/uL (3.90-5.03)
[2022-03-14 04:57] LABS: Anion Gap 15 mmol/L (10-20); BUN (Urea Nitrogen) 15 mg/dL (9.8-20.1); Calc. Creatinine Clearance 0 mL/min (70-130); Calcium 8.9 mg/dL (7.8-10.44); Carbon Dioxide 27 mmol/L (23-31); Chloride 100 mmol/L (98-107); Glucose 197 mg/dL (83-110); Potassium 4.3 mmol/L (3.5-5.1); Sodium 138 mmol/L (136-145)
[2022-03-14] MEDS ORDERED: Azithromycin 500 MG VIAL ONE (04:57)
[2022-03-14] MEDS ORDERED: Furosemide 40 MG/4 ML VIAL ONE (04:57)
[2022-03-14] MEDS ORDERED: Cefepime 2 GM VIAL ONE (04:57)
[2022-03-14 05:02] LABS: Troponin I 0.035 ng/mL (< 0.028)
[2022-03-14 05:14] LABS: MDiff Complete? YES
[2022-03-14 05:17] LABS: Band 8 % (5-11); Lymphocytes 4 % (21-51); Monocytes 3 % (0-10); Neutrophil 84 % (42-75); Reactive Lymphocytes 1 % (0-10)
[2022-03-14 05:18] LABS: Platelet Morphology Comment Appears Adequate; RBC Morphology Normal
[2022-03-14] MEDS ORDERED: cefTRIAXone\\ROCEPHIN 2 GM in Sodium Chloride 0.9% 100 ML IVPB SCH (06:00)
[2022-03-14] MEDS: Furosemide 40 MG/4 ML VIAL SLOW IVP SCH ×2 (07:48→14:42)
[2022-03-14] MEDS: Azithromycin 500 MG in Sodium Chloride 0.9% 250 ML 250 ML IVPB SCH (07:48)
[2022-03-14] MEDS ORDERED: Heparin 5,000 UNITS/ML VIAL ONE (08:00)
[2022-03-14] MEDS ORDERED: Amlodipine 5 MG TAB ONE (08:00)
[2022-03-14] MEDS ORDERED: hydrALAZINE 25 MG TAB ONE (08:01)
[2022-03-14] MEDS ORDERED: Aspirin 300 MG Suppository ONE (08:02)
[2022-03-14] MEDS ORDERED: Enoxaparin Sodium 40 MG/0.4 ML SYRINGE ONE (08:02)
[2022-03-14] MEDS ORDERED: Aspirin 325 MG TAB ONE (08:30)
[2022-03-14 08:34] LABS: Troponin I 0.034 ng/mL (< 0.028)
[2022-03-14] MEDS ORDERED: Enoxaparin Sodium 40 MG/0.4 ML SYRINGE SC SCH (09:00)
[2022-03-14] MEDS ORDERED: Aspirin 300 MG Suppository PR SCH (09:00)
[2022-03-14 14:20] VITALS: BMI 35.6
[2022-03-14] MEDS: Atorvastatin Calcium 10 MG TAB PO SCH (21:52)
[2022-03-14] MEDS: Donepezil HCl 5 MG TAB PO SCH (21:52)
[2022-03-14] MEDS ORDERED: Acetaminophen 325 MG TAB PO SCH (22:15)
[2022-03-14] MEDS ORDERED: Albuterol Sulfate 2.5 mg/3 ml Neb NEB SCH (22:45)
[2022-03-15 03:52] LABS: #Eosinphils 0.1 10x3/uL (0.0-0.5); #Monocytes 1.4 10x3/uL (0.0-1.1); #Neutrophils 9.7 10x3/uL (1.5-8.4); %Basophils 0.2 % (0.0-2.0); %Eosinophils 0.5 % (0.0-6.0); %Lymphocytes 12.7 % (18.0-47.0); %Monocytes 11.1 % (0.0-10.0); %Neutrophils 75.1 % (40.0-75.0); Hemoglobin 11.1 g/dL (12.0-15.5); Mean Corpuscular HGB CONC 32.1 g/dL (32.0-36.0); Mean Corpuscular Hemoglobin 30.2 pg (27.0-33.0); Mean Platelet Volume 10.8 fl (7.4-10.4); Platelet Count 233 10x3/uL (150-450); RBC Distribution Width 14.8 % (11.5-14.5); Red Blood Cell (RBC) Count 3.68 10x6/uL (3.90-5.03); White Blood Cell (WBC) Count 12.9 10x3/uL (3.5-10.5)
[2022-03-15 03:54] LABS: Anion Gap 16 mmol/L (10-20); BUN (Urea Nitrogen) 21 mg/dL (9.8-20.1); Calc. Creatinine Clearance 91 mL/min (70-130); Calcium 8.5 mg/dL (7.8-10.44); Carbon Dioxide 29 mmol/L (23-31); Chloride 100 mmol/L (98-107); Glucose 123 mg/dL (83-110); Magnesium 2.1 mg/dL (1.6-2.6); Potassium 3.5 mmol/L (3.5-5.1); Sodium 141 mmol/L (136-145)
[2022-03-15] MEDS: Diltiazem 125 MG in Sodium Chloride 0.9% 100 ML IVPB SCH ×2 (04:16→04:41)
[2022-03-15] MEDS: Apixaban 5 MG TAB PO SCH ×2 (04:17→17:22)
[2022-03-15] MEDS: Digoxin 0.5 MG/2 ML AMP SLOW IVP SCH ×2 (04:30→09:37)
[2022-03-15] MEDS ORDERED: Potassium Chloride 20 MEQ TAB PO SCH (04:30)
[2022-03-15] MEDS: Azithromycin 500 MG in Sodium Chloride 0.9% 250 ML 250 ML IVPB SCH ×2 (06:31→06:32)
[2022-03-15] MEDS: Levothyroxine Sodium 100 MCG TAB PO SCH (06:31)
[2022-03-15] MEDS: Furosemide 40 MG/4 ML VIAL SLOW IVP SCH ×2 (06:31→14:17)
[2022-03-15 06:44] LABS: INR-International Normal Ratio 1.1; PTT 30.5 sec (22.0-33.0); Prothrombin Time 11.4 sec (9.5-12.1)
[2022-03-15 06:52] LABS: Troponin I 0.028 ng/mL (< 0.028)
[2022-03-15] MEDS: Acetaminophen 500 MG TAB PO SCH (09:31)
[2022-03-15] MEDS: Folic Acid 1 MG TAB PO SCH (09:32)
[2022-03-15] MEDS: Docusate 100 MG CAP PO SCH (09:32)
[2022-03-15] MEDS: Clopidogrel Bisulfate 75 MG TAB PO SCH (09:32)
[2022-03-15] MEDS: Bupropion 150 MG XL TAB PO SCH (09:33)
[2022-03-15] MEDS: Potassium Bicarbonate/Cit Ac 20 MEQ TAB PO SCH (09:33)
[2022-03-15] MEDS: cefTRIAXone\\ROCEPHIN 2 GM in Sodium Chloride 0.9% 100 ML IVPB SCH (09:40)
[2022-03-15 17:45] LABS: Bilirubin Neg (Negative); Blood, Urine Negative (Negative); Clarity Clear (Clear); Glucose, Urine (Dipstick) Normal (Negative); Ketone, Urine Negative (Negative); Leukocyte Negative (Negative); Nitrite Negative (Negative); Protein, Urine (Dipstick) Negative (Neg-Trace); Urobilinogen Normal mg/dL (Less than 2)
[2022-03-15 17:54] LABS: Urine Culture Reflex No No
[2022-03-15 17:55] LABS: Bacteria/HPF Rare-Few HPF (None Seen); RBC/HPF 0-3 HPF (0-3); Squamous Epithelial 0-3 HPF (0-3); WBC/HPF None Seen HPF (0-3)
[2022-03-15 18:43] LABS: Legionella Urinary Ag Negative (Negative); Strep pneumo Urine Ag NEGATIVE (NEGATIVE)
[2022-03-15] MEDS: Atorvastatin Calcium 10 MG TAB PO SCH (21:30)
[2022-03-15] MEDS: Donepezil HCl 5 MG TAB PO SCH (21:30)
[2022-03-16] MEDS: hydrALAZINE 20 MG/ML VIAL SLOW IVP PRN ×2 (00:51→05:58)
[2022-03-16] MEDS: Acetaminophen 325 MG TAB PO PRN ×2 (03:02→23:49)
[2022-03-16] MEDS: Azithromycin 500 MG in Sodium Chloride 0.9% 250 ML 250 ML IVPB SCH (05:54)
[2022-03-16] MEDS: Apixaban 5 MG TAB PO SCH ×2 (05:55→17:30)
[2022-03-16] MEDS: Levothyroxine Sodium 100 MCG TAB PO SCH (05:55)
[2022-03-16] MEDS: Furosemide 40 MG/4 ML VIAL SLOW IVP SCH ×2 (05:58→17:29)
[2022-03-16 08:25] LABS: #Neutrophils 11.7 10x3/uL (1.5-8.4); %Basophils 0.2 % (0.0-2.0); %Eosinophils 0.1 % (0.0-6.0); %Lymphocytes 7.5 % (18.0-47.0); %Neutrophils 84.3 % (40.0-75.0); Hemoglobin 11.9 g/dL (12.0-15.5); Mean Corpuscular HGB CONC 31.7 g/dL (32.0-36.0); Mean Corpuscular Hemoglobin 29.2 pg (27.0-33.0); Mean Corpuscular Volume 92.1 fl (81.6-98.3); Mean Platelet Volume 10.9 fl (7.4-10.4); Platelet Count 281 10x3/uL (150-450); RBC Distribution Width 14.4 % (11.5-14.5); Red Blood Cell (RBC) Count 4.07 10x6/uL (3.90-5.03); White Blood Cell (WBC) Count 13.9 10x3/uL (3.5-10.5)
[2022-03-16 08:40] LABS: Anion Gap 15 mmol/L (10-20); BUN (Urea Nitrogen) 15 mg/dL (9.8-20.1); Calc. Creatinine Clearance 106 mL/min (70-130); Calcium 9.4 mg/dL (7.8-10.44); Carbon Dioxide 29 mmol/L (23-31); Chloride 97 mmol/L (98-107); Glucose 158 mg/dL (83-110); Potassium 4.3 mmol/L (3.5-5.1); Sodium 137 mmol/L (136-145)
[2022-03-16] MEDS: cefTRIAXone\\ROCEPHIN 2 GM in Sodium Chloride 0.9% 100 ML IVPB SCH (08:49)
[2022-03-16] MEDS: Docusate 100 MG CAP PO SCH (08:49)
[2022-03-16] MEDS: Acetaminophen 500 MG TAB PO SCH (08:49)
[2022-03-16] MEDS: Potassium Bicarbonate/Cit Ac 20 MEQ TAB PO SCH (08:49)
[2022-03-16] MEDS: Folic Acid 1 MG TAB PO SCH (08:49)
[2022-03-16] MEDS: Bupropion 150 MG XL TAB PO SCH (08:49)
[2022-03-16] MEDS: Clopidogrel Bisulfate 75 MG TAB PO SCH (08:49)
[2022-03-16] MEDS: Atorvastatin Calcium 10 MG TAB PO SCH (20:03)
[2022-03-16] MEDS: Donepezil HCl 5 MG TAB PO SCH (20:03)
[2022-03-17] MEDS ORDERED: Acetaminophen/Codeine 30-300mg Tablet PO SCH (01:30)
[2022-03-17] MEDS: Levothyroxine Sodium 100 MCG TAB PO SCH (04:38)
[2022-03-17] MEDS: Apixaban 5 MG TAB PO SCH ×2 (04:38→18:05)
[2022-03-17] MEDS: Azithromycin 500 MG in Sodium Chloride 0.9% 250 ML 250 ML IVPB SCH (05:21)
[2022-03-17] MEDS: Furosemide 40 MG/4 ML VIAL SLOW IVP SCH ×2 (05:22→15:17)
[2022-03-17 08:28] LABS: #Eosinphils 0.1 10x3/uL (0.0-0.5); #Monocytes 0.9 10x3/uL (0.0-1.1); #Neutrophils 7.7 10x3/uL (1.5-8.4); %Basophils 0.4 % (0.0-2.0); %Lymphocytes 15.6 % (18.0-47.0); %Monocytes 8.9 % (0.0-10.0); %Neutrophils 73.7 % (40.0-75.0); Hemoglobin 12.6 g/dL (12.0-15.5); Mean Corpuscular HGB CONC 32.1 g/dL (32.0-36.0); Mean Corpuscular Hemoglobin 29.8 pg (27.0-33.0); Mean Corpuscular Volume 92.9 fl (81.6-98.3); Mean Platelet Volume 11.1 fl (7.4-10.4); Platelet Count 310 10x3/uL (150-450); Red Blood Cell (RBC) Count 4.23 10x6/uL (3.90-5.03); White Blood Cell (WBC) Count 10.4 10x3/uL (3.5-10.5)
[2022-03-17 08:40] LABS: Anion Gap 17 mmol/L (10-20); BUN (Urea Nitrogen) 17 mg/dL (9.8-20.1); Calc. Creatinine Clearance 102 mL/min (70-130); Calcium 9.2 mg/dL (7.8-10.44); Carbon Dioxide 29 mmol/L (23-31); Chloride 98 mmol/L (98-107); Glucose 113 mg/dL (83-110); Potassium 3.9 mmol/L (3.5-5.1); Sodium 140 mmol/L (136-145)
[2022-03-17] MEDS: cefTRIAXone\\ROCEPHIN 2 GM in Sodium Chloride 0.9% 100 ML IVPB SCH (09:38)
[2022-03-17] MEDS: Acetaminophen 500 MG TAB PO SCH (09:39)
[2022-03-17] MEDS: Bupropion 150 MG XL TAB PO SCH (09:39)
[2022-03-17] MEDS: Docusate 100 MG CAP PO SCH (09:40)
[2022-03-17] MEDS: Clopidogrel Bisulfate 75 MG TAB PO SCH (09:40)
[2022-03-17] MEDS: Folic Acid 1 MG TAB PO SCH (09:40)
[2022-03-17] MEDS: Potassium Bicarbonate/Cit Ac 20 MEQ TAB PO SCH (09:41)
[2022-03-17] MEDS: Atorvastatin Calcium 10 MG TAB PO SCH (20:32)
[2022-03-17] MEDS: Acetaminophen 325 MG TAB PO PRN (20:32)
[2022-03-17] MEDS: Donepezil HCl 5 MG TAB PO SCH (20:32)
[2022-03-18] MEDS: Levothyroxine Sodium 100 MCG TAB PO SCH (05:27)
[2022-03-18] MEDS: Azithromycin 500 MG in Sodium Chloride 0.9% 250 ML 250 ML IVPB SCH (05:27)
[2022-03-18] MEDS: Apixaban 5 MG TAB PO SCH (05:27)
[2022-03-18] MEDS: Furosemide 40 MG/4 ML VIAL SLOW IVP SCH (05:29)
[2022-03-18] MEDS: cefTRIAXone\\ROCEPHIN 2 GM in Sodium Chloride 0.9% 100 ML IVPB SCH (09:30)
[2022-03-18] MEDS: Clopidogrel Bisulfate 75 MG TAB PO SCH (09:30)
[2022-03-18] MEDS: Bupropion 150 MG XL TAB PO SCH (09:30)
[2022-03-18] MEDS: Acetaminophen 500 MG TAB PO SCH (09:30)
[2022-03-18] MEDS: Potassium Bicarbonate/Cit Ac 20 MEQ TAB PO SCH (09:31)
[2022-03-18] MEDS: Folic Acid 1 MG TAB PO SCH (09:31)
[2022-03-18] MEDS: Docusate 100 MG CAP PO SCH (09:31)
[2022-03-18 12:29] VITALS: BP 100/59; TEMP 96.7
== END 2022-03-18 14:25 | DRG 193 ==
LOC: CSHERS 19:10 → CSHERHOLD 03-14 04:00 → OBSVTOIN 03-14 04:01 → CSHTELE 03-14 14:28
PROVIDERS: ADMIT Family Medicine; ATTEND Hospitalist
DX: J18.9 Pneumonia, unspecified organism (principal); J96.01 Acute respiratory failure with hypoxia; I50.23 Acute on chronic systolic (congestive) heart failure; I11.0 Hypertensive heart disease with heart failure; E03.9 Hypothyroidism, unspecified; E78.5 Hyperlipidemia, unspecified; M06.9 Rheumatoid arthritis, unspecified; G30.9 Alzheimer's disease, unspecified; F02.80 Dementia in other diseases classified elsewhere, unspecified severity, without behavioral disturbance, psychotic disturbance, mood disturbance, and anxiety; I25.10 Atherosclerotic heart disease of native coronary artery without angina pectoris; K21.9 Gastro-esophageal reflux disease without esophagitis; G62.9 Polyneuropathy, unspecified; Z96.653 Presence of artificial knee joint, bilateral; Z66 Do not resuscitate; I48.91 Unspecified atrial fibrillation; I48.0 Paroxysmal atrial fibrillation; Z20.822 Contact with and (suspected) exposure to COVID-19; F41.9 Anxiety disorder, unspecified; F32.A Depression, unspecified; Z88.8 Allergy status to other drugs, medicaments and biological substances; Z88.2 Allergy status to sulfonamides; Z79.82 Long term (current) use of aspirin; Z79.899 Other long term (current) drug therapy; Z86.73 Personal history of transient ischemic attack (TIA), and cerebral infarction without residual deficits; Z90.710 Acquired absence of both cervix and uterus
CPT/HCPCS: 36415; 71045; 71275; 74174; 80048; 81001; 82553; 83690; 83735; 83880; 84443; 84484; 85025; 85379; 85610; 85730; 87040; 87449; 87899; 93005; 93010; 93306; 94640; 94760; 96365; 96367; 96375; J0360; J0456; J0692; J0696; J1160; J1200; J1644; J1650; J1940; J2270; J2930; J3490; J7050; J7611; S0028; U0003; U0005